=== PATIENT | female | born 1970 | race African-American/Black ===

== ENCOUNTER 2023-09-02 22:25 | Observation (INO) | payer BC, SELFPAY ==
--- NOTE | ~2023-09-02 | MR_ITS ---
EXAMINATION: MR brain/brain stem wo/w con DATE: 09/03/2023 10:23 INDICATION: Possible stroke presenting with facial numbness TECHNIQUE: Magnetic resonance imaging (MRI) of the brain and brainstem was performed without and with 17 mL Multihance intravenous contrast. Sequences included sagittal and axial T1-weighted SE, axial d iffusion-weighted FS SE, axial 3D SWAN, axial T2-weighted FLAIR, and axial T2-weighted FSE. Postcontr ast axial and coronal T1-weighted SE was obtained. Apparent diffusion coefficient (ADC) maps were cre ated. COMPARISON: None. FINDINGS: There are no areas of restricted diffusion to suggest acute infarction. No intracranial hemorrhage or abnormal intracranial mass lesion. There are no intraparenchymal signal abnormalities seen on the ot her pulse sequences. The ventricles are symmetric and normal in size. There are no abnormal extra-axi al fluid collections. Flow voids are seen in the cerebral arteries on the T2-weighted sequences consi stent with their expected patency. Visualized orbits and soft tissues are unremarkable. There are no areas of abnormal enhancement on the post contrast images. IMPRESSION: 1. Normal brain. No acute intracranial process. Reviewed, dictated and finalized at location A. OR ENGINEERING TECH
--- NOTE | ~2023-09-02 | CT_ITS ---
Non-contrast Head CT History: Facial numbness Technique: Axial non-contrast imaging of the brain was performed. Dose reduction technique was used on this scan by utilizing automated exposure control and iterative reconstruction technique. The dose -length product (DLP) was 605.33 mGy-cm. Findings: There is no evidence of intracranial hemorrhage, mass lesion, or acute infarct. Brain par enchyma appears normal. The ventricles and subarachnoid spaces are normal in size. The calvarium ap pears normal. The visualized paranasal sinuses and mastoid air cells are clear. Impression: No significant abnormality seen. Reviewed, dictated and finalized at location . ATION AND DEVELOPMENT MANAGER Impression: No significant abnormality seen.
[2023-09-02 22:28] VITALS: BP 128/88; PULSE 131; RESP 20; TEMP 36.4; O2SAT 98
--- NOTE | 2023-09-02 23:31 | ECG_ITS ---
Measurements Intervals [place] Rate: 113 P: 16 AL: 183 QRS: -5 QRSD: 73 T: 19 QT: 338 QTc: 465 Interpretive Statements SINUS TACHYCARDIA LOW QRS VOLTAGE IN PRECORDIAL LEADS BORDERLINE T WAVE ABNORMALITY- ANTERIOR LEADS BASELINE ARTIFACT- I, II, III, AVR, AVL, V5-V6 ABNORMAL ECG NO PREVIOUS ECG AVAILABLE FOR COMPARISON Electronically Signed On 09-03-2023 6:51:42 EDUCATION COURSES SALES REPRESENTATIVE by Benny Naqvi D.O.
--- NOTE | 2023-09-02 23:33 | ED.GENADULT ---
HPI - General Adult General Chief complaint: Unspecified <Kate Gillette PA-C - Last Filed: 09/03/23 03:28> Stated complaint: facial numbness for 3 days <Kate Gillette PA-C - Last Filed: 09/03/23 03:28> Time Seen by Provider: 09/02/23 23:18 <Kate Gillette PA-C - Last Filed: 09/03/23 03:28> History of Present Illness HPI narrative: 52 y/o F with a self reported history of HTN reports for evaluation for facial numbness x3 days. Pt's friend is present at bedside. Pt states her entire face has been numb for 3 days, however upon further questioning, she states it is a tingling sensation, not numbness. She arrives today because she is concerned she is having a stroke. She denies headache, head injury or trauma, vision changes, focal numbness or weakness, chest pain, SOB, abdominal pain, n/v/d, rash, otalgia, fever. Pt does endorse drinking alcohol her whole life . States she drinks all day every day, however her friend who is at bedside states she drinks over a pint most days. Today she had over a pint of richard. She also reports smoking multiple cigars daily. Her PCP is Dr. Broderick in [place]. Patient states her last alcoholic drink was around 10:00 p.m. tonight. She denies history of alcohol withdrawal, no prior seizures or hallucinations. <Kate Gillette PA-C - Last Filed: 09/03/23 03:28> Related Data Home medications: Home Medications Medication Instructions Recorded Confirmed hydrochlorothiazide 25 mg tablet 25 mg PO DAILY 09/03/23 09/03/23 <Kate Gillette PA-C - Last Filed: 09/03/23 03:28> Allergies/adverse reactions: Allergies Allergy/AdvReac Type Severity Reaction Status Date / Time No Known Allergies Allergy Verified 09/02/23 22:35 <CRISTIANE Alvarez Last Filed: 09/03/23 03:28> Most Recent Cardiac Tests: No Data to Display <CRISTIANE Alvarez Last Filed: 09/03/23 03:28> Review of Systems Review of Systems: CONSTITUTIONAL: Denies fever, chills, or sweats. EYES: Denies visual changes, redness, or discharge. ENT: Denies rhinorrhea, congestion, sore throat, or otalgia. CARDIOVASCULAR: Denies chest pain, palpitations, or edema. RESPIRATORY: Denies cough or dyspnea. GASTROINTESTINAL: Denies abdominal pain, nausea, vomiting, or diarrhea. GENITOURINARY: Denies dysuria or hematuria. SKIN: Denies rash or itching. MUSCULOSKELETAL: Denies back pain, joint pain, or myalgia. NEUROLOGIC: See HPI PSYCHIATRIC: Denies anxiety or depression. <Kate Gillette PA-C - Last Filed: 09/03/23 03:28> [facility] Family History Family History: Family History (Updated 09/03/23 @ 05:46 by Dulce Jacobs RN) Mother Borderline diabetes Sibling Colon cancer <Kate Gillette PA-C - Last Filed: 09/03/23 03:28> Social History Social History: Social History Smoking status: Current every day smoker Tobacco type: cigars Alcohol intake: current Substance use: never Substance use type: does not use Do You Feel Safe in your Home?: Yes Lack of Transportation: No Lack of Food: Sometimes True Current Housing: I Have Housing Concerned About Future Housing: YES Difficulty Paying Gas/Electric Bills: YES Difficulty Paying for Meds: No Currently Unemployed: YES Education: Trade/Vocational Certificate Difficulty w/ Childcare or Family Care: No Spiritual care concerns: No <Kate Gillette PA-C - Last Filed: 09/03/23 03:28> Exam Narrative: GENERAL: Clinically intoxicated, smells of alcohol. Nontoxic appearing. In no acute distress. Anxious appearing HEAD: Normocephalic, atraumatic. EYES: PERRLA and EOMI. ENT: Nares clear, no rhinorrhea or epistaxis. Mucous membranes moist. Posterior pharynx without erythema, edema. No tonsillar hypertrophy. Uvula midline. Bilateral TMs are pineda nonbulging with normal canals. No herpes zoster rash NECK: S
[2023-09-02] MEDS: LORazepam INJ (*CRX) 2 MG/ML VIAL 0.5 MG IV PUSH (23:52)
[2023-09-02] MEDS: SODIUM CHLORIDE 0.9% IV 1,000 ML 999 ML IV CONT (23:53)
[2023-09-03 00:02] LABS: Basophils Percent Auto 0.7 % (0.2-1.2); Eosinophils Absolute Auto 0.1 K/mm3 (0-0.3); Eosinophils Percent Auto 1.5 % (0-4.4); Hematocrit 42.8 % (37.0-47.0); Hemoglobin 14.3 g/dL (12.0-15.0); Immature Granulocyte Absolute 0.02 K/mm3 (0.00-0.031); Immature Granulocyte Percent A 0.3 % (0-0.5); Lymphocytes Absolute Auto 2.33 K/mm3 (0.9-3.2); Lymphocytes Percent Auto 39.4 % (18.3-44.2); Mean Corpuscular HGB Conc 33.4 g/dl (32-36); Mean Corpuscular Volume 92.6 fl (80-100); Mean Platelet Volume 10.4 fl (7.4-10.4); Monocytes Absolute Auto 0.4 K/mm3 (0.1-0.6); Monocytes Percent Auto 6.1 % (2.6-8.5); Neutrophils Absolute Auto 3.1 K/mm3 (1.3-6.7); Platelet Count Result 320 k/mm3 (150-375); Red Blood Count 4.62 M/mm3 (4.2-5.4); Red Cell Distribution Width 12.2 % (11.5-14.5); White Blood Count 5.9 K/mm3 (4.5-10.0)
[2023-09-03 00:03] LABS: Appearance Urine Clear (Clear); Bilirubin Urine Negative (Negative); Blood Urine Negative (Negative); Color Urine Yellow (Yellow); Glucose Urine UA Negative (Negative); Ketones Urine Negative (Negative); Leukocyte Esterase Ur Negative LEU/UL (Negative); Nitrate Urine Negative (Negative); Protein Urine Negative (Negative); Specific Grav Ur 1.003 (1.001-1.035); Urobilinogen Urine 0.2 mg/dL (<2.0)
[2023-09-03 00:04] LABS: Add Urine Microscopic? NO
[2023-09-03 00:19] LABS: Amphetamine Screen Urine Negative (Negative); Barbiturate Screen Urine Negative (Negative); Benzodiazepines Screen Urine Negative (Negative); Cannabinoid Screen Urine Negative (Negative); Cocaine Screen Urine Negative (Negative); Methadone Screen Urine Negative (Negative); Opiate Screen Urine Negative (Negative); Phencyclidine Screen Urine Negative (Negative)
[2023-09-03 00:27] LABS: Ethanol 289 mg/dL (<10)
[2023-09-03 01:44] VITALS: BP 94/66; PULSE 94; RESP 15; O2SAT 98
[2023-09-03 02:21] LABS: Influenza A QL RT-PCR Negative (Negative); Influenza B QL RT-PCR Negative (Negative); RSV RNA, RT-PCR Negative (Negative); SARS-CoV-2 RNA PCR Negative (Negative)
[2023-09-03 03:05] LABS: Alanine Aminotransferase 19 U/L (6-35); Albumin Level 3.7 g/dL (3.5-5.1); Alkaline Phosphatase 81 U/L (38-126); Anion Gap 12 mmol/L (8-16); Aspartate Amino Transferase 23 U/L (14-36); Bilirubin,Total 0.3 mg/dL (0.2-1.3); Blood Urea Nitrogen 10 mg/dL (7-17); Calcium 8.5 mg/dL (8.4-10.2); Carbon Dioxide 24 mmol/L (22-30); Chloride 107 mmol/L (98-107); Estimated CRCL calculation 104 ml/min; Estimated Glomerular Filt Rate > 60; Glucose 104 mg/dL (65-110); Magnesium 1.9 mg/dL (1.6-2.3); Phosphorus 4.5 mg/dL (2.5-4.5); Potassium 3.7 mmol/L (3.4-5.0); Sodium 143 mmol/L (137-145)
[2023-09-03] MEDS: CYANOCOBALAMIN INJ 1,000 MCG/ML VIAL 1000 MCG IM (03:26)
[2023-09-03] MEDS: SODIUM CHLORIDE 0.9% IV 1,000 ML 999 ML IV CONT (03:29)
[2023-09-03 04:50] VITALS: BP 109/67; PULSE 95; RESP 18; TEMP 35.9; O2SAT 99
[2023-09-03 05:02] VITALS: PULSE 94; RESP 15
--- NOTE | 2023-09-03 05:42 | ADMGEN ---
This patient, Marilyn Perry, was admitted to [facility] Room 329-01. Patient/family oriented to hospital policies and general routines including ID bracelet, bed and alarms, visiting hours, pain management, procedures, bathroom and other care routines, personal items, smoking policy, room service/diet, and visiting hours. Information on how to activate the Rapid Response Team has been discussed. Patient/Family are encouraged to report perceived risks to care and to ask questions if they do not understand what they are told or what they should do.
[2023-09-03] MEDS: SODIUM CHLORIDE 0.9% IV 1,000 ML 100 ML IV CONT (06:12)
[2023-09-03 06:59] VITALS: BMI 31.6
--- NOTE | 2023-09-03 09:49 | WPDNEURCNPN ---
Assessment and Plan Assessment and plan (1) Facial paresthesia: Code(s): R20.2 - Paresthesia of skin Status: Acute (2) Alcohol abuse: Code(s): F10.10 - Alcohol abuse, uncomplicated Status: Acute (3) B12 deficiency: Code(s): E53.8 - Deficiency of other specified B group vitamins Status: Acute Plan Marilyn Perry is a 52 year old female with a history of hypertension and chronic alcohol use presenting due to facial numbness/tingling. Work-up significant for B12 deficiency which is likely the cause of her symptoms. Recommend B12 1000mcg daily. MRI brain is normal. Ok to discharge. Consult date: 09/03/23 Reason for consult: Facial numbness HPI: Marilyn Perry is a 52 year old female with a history of hypertension and chronic alcohol use presenting due to facial numbness/tingling. She presented due to full facial paraesthesias x 3 days. She did not have any other focal symptoms such as unilateral weakness/numbness, speech or vision deficit. In the ED she had a CT head which was normal. She was intoxicated on arrival. Labs were significant for B12 level of 170. Her alcohol level was 289. UDS was negative. UA negative as well. Blood pressure ranged from 100-120 systolic. EKG showed sinus tachycardia. On ER provider's exam patient has intact sensation of the face bilaterally. Case was discussed with Dr. Rocha who though symptoms are likely due to B12 deficiency. She was subsequently admitted for observation. MRI brain is normal. Patient still reports some slight numbness of the face. Review of Systems Review of Systems: All systems reviewed & are unremarkable except as noted in HPI and below PMFSH Family History Family History Mother Borderline diabetes Sibling Colon cancer Social History Social History Smoking status: Current every day smoker Tobacco type: cigars Alcohol intake: current Substance use: never Substance use type: does not use Do You Feel Safe in your Home?: Yes Lack of Transportation: No Lack of Food: Sometimes True Current Housing: I Have Housing Concerned About Future Housing: YES Difficulty Paying Gas/Electric Bills: YES Difficulty Paying for Meds: No Currently Unemployed: YES Education: Trade/Vocational Certificate Difficulty w/ Childcare or Family Care: No Spiritual care concerns: No Meds Home Medications and Allergies Home Medications Medication Instructions Recorded Confirmed Type hydrochlorothiazide 25 mg tablet 25 mg PO DAILY 09/03/23 09/03/23 History Allergies Allergy/AdvReac Type Severity Reaction Status Date / Time No Known Allergies Allergy Verified 09/02/23 22:35 Vital Signs Vital Signs - 24 hr 09/02/23 22:28 09/03/23 01:44 09/03/23 05:02 Temperature 36.4 C Pulse Rate 131 H 94 94 Respiratory Rate 20 15 15 Blood Pressure 128/88 94/66 L Pulse Oximetry 98 98 Oxygen Delivery Room Air 09/03/23 04:50 Temperature 35.9 C L Pulse Rate 95 Respiratory Rate 18 Blood Pressure 109/67 Pulse Oximetry 99 Oxygen Delivery Exam Const: General: comfortable and no acute distress Eyes: Pupils: Equal, round and reactive pupils present EOM: EOMs intact bilaterally Resp: Effort & Inspection: normal respiratory effort Skin: General skin exam: normal color Neuro: Other: AOx3, Pupils equal and reactive bilaterally, EOMI, face symmetric, facial sensation intact, but she does report paraesthesias when face is touched on both sides, tongue protrudes midline, palate midline. Shoulder shrug normal. Strength 5/5 throughout. Sensation intact in the extremities. FNF normal bilaterally. Language comprehension and fluency intact. Gait deferred. Extrem: General: normal to inspection Psych: Mental Status: mental status grossly normal Affect: normal affect Results Labs 09/02/23 23:49
--- NOTE | 2023-09-03 10:14 | PM.IMHP ---
H&P: HPI History of Present Illness Date/Time: 09/03/23 10:14 Chief Complaint: Facial paralysis Vitamin B12 deficiency Alcohol abuse hypertension Narrative: This is a 52 year old female with a significant past medical history of hypertension, tobacco abuse, and alcohol abuse who presented to the hospital on 09/02/23 with complaints of facial numbness. She states that the symptoms started about 3 days ago and has not worsened but has not gone away. Workup in the hospital included urine drug screen which was negative other than an elevated blood alcohol level of 289, respiratory panel was negative for influenza a, flu, RSV. UA was negative for any bacteria. EKG was done which showed sinus tach with a rate of 113. Head CT was negative for any acute changes. MRI was negative for any acute changes. Labs were essentially unremarkable except for vitamin B level was low at 170. She was given some IV fluids in the emergency room, started on IV fluid maintenance, and given vitamin B12 injection while in the ED. neurology was consulted. Neurology feels that this is most likely due to her B12 deficiency and will need to take B12 1000 mcg daily. On examination today patient is alert and oriented x3, lying in the bed. She denies any fever, chills, nausea, vomiting, diarrhea, abdominal pain, shortness a breath, chest pain, lightheadedness, dizziness, headache, or visual changes. She only has numbness which is over both her cheeks with the left being worse than the right. She denies any pain or discomfort at this time. She does have a mole on her right cheek which she states has been there since January and has gotten bigger. The mole is dark brown and irregular shaped border. I discussed with her that she will probably need to see a real estate internship on outpatient basis for further workup and diagnosis, basal cell carcinoma versus squamous cell carcinoma versus benign. Review of Systems Review of Systems: All systems reviewed & are unremarkable except as noted in HPI and below Constitutional: Constitutional: Reports as per HPI, Denies chills, Denies fatigue and Denies weakness Eyes: Eyes: Reports no additional eye complaints, Denies blurry vision and Denies photophobia Comments: denies double vision ENT: Reports system reviewed and no additional complaints, except as documented, Reports as per HPI, Denies dysphagia, Denies nasal congestion, Denies nasal discharge and Denies tinnitus Cardiovascular: Cardiovascular: Reports as per HPI, Reports no additional cardiovascular complaints, Denies chest pain, Denies pedal edema, Denies leg edema, Denies lightheadedness and Denies palpitations Respiratory: Respiratory: Reports as per HPI, Reports no additional respiratory complaints, Denies chest congestion, Denies cough and Denies dyspnea Gastrointestinal: Gastrointestinal: Reports as per HPI, Reports no additional gastrointestinal complaints, Denies abdominal pain, Denies constipation, Denies diarrhea, Denies nausea and Denies vomiting Genitourinary: Genitourinary: Reports no additional female genitourinary complaints, Reports as per HPI, Denies hematuria and Denies dysuria Musculoskeletal: Musculoskeletal: Reports no additional musculoskeletal complaints, Reports as per HPI and Denies myalgias Integumentary/Breasts: Skin/Breast: Reports system reviewed and no additional complaints, except as docu and Reports as per HPI Comments: Reports a mole on the left side of face with irregular borders that has increased in size and reports that it itches. Neurologic: Reports system reviewed and no additional complaints, except as documented, Reports as per HPI, Denies Abnormal speech present, Denies abnormal gait, Denies confusion, Denies vertigo, Denies headache(s) and Reports numbness Comments: Reports facial numbness left side greater than the right, mostly over cheeks and nose. Psychiatric: Psychiatric: Reports no additional psychiatric complaints, Reports
[2023-09-03 11:21] LABS: Glucose Point of Care 84 mg/dl (65-105)
--- NOTE | 2023-09-03 12:52 | PM.DS ---
DS: Admitting Diagnosis Discharge Date 09/03/23 Admitting Diagnosis Facial paresthesia Vitamin B12 deficiency Alcohol abuse Hyper 10 DS: Discharge Diagnosis Discharge Diagnosis (1) Facial paresthesia: Code(s): R20.2 - Paresthesia of skin Status: Acute (2) B12 deficiency: Code(s): E53.8 - Deficiency of other specified B group vitamins Status: Acute (3) Alcohol abuse: Code(s): F10.10 - Alcohol abuse, uncomplicated Status: Acute (4) Hypertension: Code(s): I10 - Essential (primary) hypertension Status: Acute DS: Summary Hospital Course Reason for hospitalization: Facial paresthesia Vitamin B12 deficiency Alcohol abuse Hospital Course: This is a 52 year old female who presented with 3 day history of facial numbness/tingling. Workup in the hospital included urine drug screen which was negative other than an elevated blood alcohol level of 289, respiratory panel was negative for influenza a, flu, RSV.? UA was negative for any bacteria.? EKG was done which showed sinus tach with a rate of 113.? Head CT was negative for any acute changes.? MRI was negative for any acute changes.? Labs were essentially unremarkable except for vitamin B level was low at 170.? She was given some IV fluids in the emergency room, started on IV fluid maintenance, and given vitamin B12 injection while in the ED. neurology was consulted.? Neurology feels that this is most likely due to her B12 deficiency and will need to take B12 1000 mcg daily.? On examination today patient is alert and oriented x3, lying in the bed.? She denies any fever, chills, nausea, vomiting, diarrhea, abdominal pain, shortness a breath, chest pain, lightheadedness, dizziness, headache, or visual changes.? She only has numbness which is over both her cheeks with the left being worse than the right.? She denies any pain or discomfort at this time.? She does have a mole on her right cheek which she states has been there since January and has gotten bigger.? The mole is dark brown and irregular shaped border.? I discussed with her that she will probably need to see a electrical maintenance engineer on outpatient basis for further workup and diagnosis, basal cell carcinoma versus squamous cell carcinoma versus benign. Patient is stable for discharge at this time. She will need to follow up with her primary care physician in 1 week. She was discharged with a prescription of vitamin B12 1000 mcg that she will take daily. Also talked to the patient about decreasing alcohol intake as well as stop smoking. Final diagnosis: Vitamin B12 deficiency, alcohol dependence Status at Discharge Cognitive/behavioral status at discharge: Alert oriented x3 Functional status at discharge: independent ambulation Overall status at discharge: patient is progressing back to baseline Time Spent with Patient Time attestation: Total time spent providing and/or coordinating discharge services: Time spent: Greater than 30 minutes Exam Narrative: General: In no acute distress, well nourished Head: atraumatic, no encephalopathy Eyes: EOMI, PERRLA, sclera clear ENT: moist mucous membranes, nasal passages clear Neck: supple, no JVD, no adenopathy, trachea midline Cardiac: Normal S1 and S2. No murmur, gallops or friction rubs, peripheral pulses intact. Respiratory: Lungs clear to auscultation, no adventitious lung sounds Gastrointestinal: soft, non-distended, non-tender, normoactive bowel sounds. : voiding without difficulty. Extremities: moves all extremities well, no edema, good ROM, strength 5/5 Skin: Irregular shaped mole on the right side of her face, cheek. Patient states that this has gotten bigger since she noticed it popped up in January. Neuro: Alert and oriented x4, cranial nerves intact, no neuro deficits. Reports facial numbness left side of the face greater than the right, facial features normal, coordination intact, patient denies any lightheadedness, dizziness, headache, visual park
== END 2023-09-03 13:00 | disposition home or self-care (01) ==
LOC: ANHED 09-03 03:17 → ANH3MEDSUR 09-03 05:49
PROVIDERS: Admitting Provider Family Medicine; Emergency Provider Physician Assistant; Visit Provider Hospitalist
DX: R20.2 Paresthesia of skin (principal); E53.8 Deficiency of other specified B group vitamins; F10.129 Alcohol abuse with intoxication, unspecified; Y90.8 Blood alcohol level of 240 mg/100 ml or more; I10 Essential (primary) hypertension; R00.0 Tachycardia, unspecified; R94.31 Abnormal electrocardiogram [ECG] [EKG]; Z20.822 Contact with and (suspected) exposure to COVID-19; F17.290 Nicotine dependence, other tobacco product, uncomplicated; Z79.899 Other long term (current) drug therapy
CPT/HCPCS: 36415; 70450; 70553; 80053; 80307; 81003; 81025; 82607; 82746; 82948; 83735; 84100; 85025; 87637; 93005; 96361; 96374; 99285; A9577; G0378; J2060; J3420; J7030